=== PATIENT | female | born 1955 | race Caucasian/White ===

== ENCOUNTER 2021-03-27 09:26 | Outpatient (CLI) | payer BC ==
[~2021-03-27] VITALS: Ht 160.2 cm; Wt 59.9 kg
== END 2021-03-27 12:42 | disposition home or self-care (01) ==
LOC: PREOP 09:26
PROVIDERS: ATTEND Internal Medicine
DX: Z01.818 Encounter for other preprocedural examination (principal)

== ENCOUNTER 2021-04-04 08:02 | Day surgery (SDC) | payer BC ==
--- NOTE | 2021-03-28 07:03 | HISTORY AND PHYSICAL ---
DATE OF SERVICE: COLONOSCOPY HISTORY AND PHYSICAL DATE OF ADMISSION: 04/04/2021. HISTORY OF PRESENT ILLNESS: The patient is a 66-year-old white female referred by Dr. Aguirre for her first screening colonoscopy. She is deemed to be of higher than average risk as her mother was diagnosed with colon cancer at the age of 62 and lived to the age of 89. She does report some intermittent episodes of left lower quadrant abdominal discomfort for the past several years, last 2 or 3 days, sometimes radiates around to her back, not associated with bowel habit change and she has noted no bright red blood per rectum or melena. She does note some increase in gas and wonders about underlying diverticulitis. She believes she had one grandmother, who had issues with diverticulitis. Neither of her parents to her knowledge did; however. She states that she may have put on a pound or two since the onset of the COVID, denying weight loss. She takes no medication. Reports no significant past medical history. PAST SURGICAL HISTORY: Unremarkable as well. Reporting no past surgeries. FAMILY HISTORY: Mother's history is as noted in the HPI. Father of natural causes at the age of 96. 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 She has no past smoking history and reports 3 to 4 night drinks either beer or wine per week. REVIEW OF SYSTEMS: CONSTITUTIONAL: She denies night sweats, chills or fever. She is fully vaccinated for COVID. PULMONARY: She denies cough, wheezing or shortness of breath. CARDIOVASCULAR: She denies chest pain, syncope, presyncope, orthopnea, PND or pedal edema. GASTROINTESTINAL: As noted in the HPI. PHYSICAL EXAMINATION: GENERAL: Reveals a pleasant, well-appearing white female, in no acute distress. VITAL SIGNS: Initial blood pressure 168/94 at the end of the interview 140/80. She reports her blood pressure is usually much lower than this and she is anxious about being here. Weight is 133.4 pounds. HEENT: Unremarkable. CHEST: Clear to auscultation. CARDIOVASCULAR: Reveals a regular rate and rhythm without murmur, S3 or S4. ABDOMEN: Soft, supple without mass, organomegaly or tenderness with particular attention to the left lower quadrant of the abdomen, which was unremarkable. Bowel sounds positive. EXTREMITIES: Reveal no cyanosis, clubbing or edema. ASSESSMENT AND PLAN: The patient is set up for her first screening colonoscopy on 04/04/2021. Prep instructions with the Suprep kit were given and questions were answered. I thank you for the referral of this pleasant lady. Job ID: [id number] DocumentID: [id number] Dictated Date: 03/26/2021 09:58:02 Recording Studio Internship Date: 03/26/2021 11:28:50 Dictated By: CELINE YUN MD
[2021-04-04] VITALS (9 sets, daily range): BP systolic 109–160; BP diastolic 59–85
[~2021-04-04] VITALS: Ht 160.2 cm; Wt 59.9 kg
[2021-04-04] MEDS ORDERED: LIDOCAINE JELLY 2% 6 ML SYRINGE ONE ×2 (08:11→08:35)
[2021-04-04] MEDS ORDERED: LACTATED RINGERS 1,000 ML IV ONE (08:11)
[2021-04-04] MEDS ORDERED: MIDAZOLAM 2 MG/2 ML (VERSED) VIAL ONE (08:33)
[2021-04-04] MEDS ORDERED: PROPOFOL INJECTION 50 ML IV ONE (08:33)
--- NOTE | 2021-04-04 08:39 | Pre-Op Note & Conscious Sedat ---
Pre-Operative Progress Note H&P Reviewed The H&P was reviewed, patient examined and no changes noted. Date H&P Reviewed: April 04, 2021 Time H&P Reviewed: 08:05 Conscious Sedation Pre-Proced ASA Score 1 For ASA 3 and 4: Consider anesthesia and medical clearance. Also, for patients with a history of failed moderate sedation consider anesthesia. Airway Lungs Heart ASA score ASA 1: a normal healthy patient ASA 2: a patient with a mild systemic disease (mid diabetes, controlled hypertension, obesity ASA 3: a patient with a severe systemic disease that limits activity (angina, COPD, prior Myocardial infarction) ASA 4: a patient with an incapacitating disease that is a constant threat to life (CHF, renal failure) ASA 5: a moribund patient not expected to survive 24 hrs. (ruptured aneurysm) ASA 6: a declared brain- patient whose organs are being harvested. For emergent operations, add the letter E after the classification Mallampati Classification Grade 1 Sedation Plan Analgesia, Amnesia, Plan communicated to team members, Discussed options with patient/fam, Discussed risks with patient/fam The patient is an appropriate candidate to undergo the planned procedure, sedation, and anesthesia. The patient immediately re-assessed prior to indication. CELINE YUN MD April 04, 2021 08:39
[2021-04-04] MEDS ORDERED: LACTATED RINGERS 1,000 ML IV SCH (09:15)
--- NOTE | 2021-04-04 13:27 | Anesthesia-General Post-Op ---
MAC Patient Condition Mental Status/LOC: Same as Preop Cardiovascular: Satisfactory Nausea/Vomiting: Absent Respiratory: Satisfactory Pain: Controlled Complications: Absent Post Op Complications Complications None Follow Up Care/Instructions Patient Instructions None needed. Anesthesiology Discharge Order Discharge Order Patient is doing well, no complaints, stable vital signs, no apparent adverse anesthesia problems. No complications reported per nursing. YUNIOR RAMOS CRNA April 04, 2021 13:27
--- NOTE | 2021-04-04 17:48 | OPERATIVE REPORT ---
DATE OF SERVICE: COLONOSCOPY SUMMARY INDICATION FOR THE PROCEDURE: Screening, family history for colon cancer. DESCRIPTION OF PROCEDURE: The patient was placed in the left lateral decubitus position. Prior to undergoing colonoscopy, digital rectal evaluation was performed. Anal sphincter tone was normal. Perianal reflexes intact. No abnormalities were noted on digital inspection of anal canal or distal rectal vault. The colonoscope was then inserted into the rectum and under direct visualization advanced to cecum. The cecum was identified by identification of ileocecal valve and cecal strap. Photographic documentation was obtained. Careful inspection was made as colonoscope was withdrawn. Quality of the prep was good. FINDINGS: There was no evidence for internal or external hemorrhoids. Present in the distal rectum was a sessile adenomatous polyp measuring roughly 1.5 x 1 cm in size. No ulceration or inflammatory change was noted. It was biopsied in three locations and cauterized in three locations with no subsequent blood loss. The remainder of the rectum was unremarkable. Moderate number of small medium size sigmoid diverticulum were present without evidence for diverticulitis. A small adenomatous appearing polyp was noted in the proximal sigmoid colon. It was photographed and biopsied and ablated with no blood loss. The descending colon, splenic flexure, transverse colon, hepatic flexure, ascending colon and cecum were unremarkable. ASSESSMENT: Two adenomatous appearing polyps were removed today, the larger from the distal rectum. We will likely be advocating a 1-year surveillance colonoscopy interval as long as there is no evidence for microscopic malignancy or dysplasia in regards to the rectal polyp. The patient had moderate diverticular disease without evidence for diverticulitis confined to the sigmoid colon. I thank you for the referral of this pleasant lady. Job ID: [id number] DocumentID: [id number] Dictated Date: 04/04/2021 11:25:20 Denture Packer Date: 04/04/2021 17:46:17 Dictated By: CELINE YUN MD MTDD
== END 2021-04-04 10:05 | disposition home or self-care (01) ==
LOC: ENDO 08:02
PROVIDERS: ATTEND Internal Medicine
DX: Z12.11 Encounter for screening for malignant neoplasm of colon (principal); D12.8 Benign neoplasm of rectum; D12.5 Benign neoplasm of sigmoid colon; K57.30 Diverticulosis of large intestine without perforation or abscess without bleeding; Z80.0 Family history of malignant neoplasm of digestive organs
CPT/HCPCS: 88305

== ENCOUNTER → 2021-04-15 | Outpatient (CLI) | payer BC | LOC: RAD 08:15 | PROVIDERS: ATTEND Family Medicine | DX: Z12.31 Encounter for screening mammogram for malignant neoplasm of breast (principal) | CPT/HCPCS: 77063; 77067 ==

== ENCOUNTER 2022-04-10 08:06 | Outpatient (CLI) | payer BC, MEDICARE ==
[~2022-04-10] VITALS: Ht 160 cm; Wt 58.5 kg
== END 2022-04-15 10:45 | disposition home or self-care (01) ==
LOC: PREOP 08:06
PROVIDERS: ATTEND Internal Medicine
DX: Z01.818 Encounter for other preprocedural examination (principal); D12.8 Benign neoplasm of rectum

== ENCOUNTER 2022-04-24 08:52 | Day surgery (SDC) | payer BC, MEDICARE ==
--- NOTE | 2022-04-12 07:01 | HISTORY AND PHYSICAL ---
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 She is going to be undergoing surveillance colonoscopy. She is deemed to be of higher than average risk secondary to this polyp as well as the fact that her mother was diagnosed with colon cancer at the age of 62. Last year, was her first colonoscopy. She reports that she has done well and had no problems with the procedure. There have been no changes in health history. She denies bright red blood per rectum, melena, change in bowel habits or abdominal pain. PAST SURGICAL HISTORY: She reports no past surgeries. PAST MEDICAL HISTORY: Remarkably noncontributory, is unremarkable. MEDICATIONS: Taking no prescription medications. ALLERGIES: Reporting no known drug allergies. FAMILY HISTORY: Other than her mother's colon cancer diagnosis, she did live to be 89 years of age. Father reported natural causes at the age of 96. 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 PHYSICAL EXAMINATION: GENERAL: Reveals a pleasant white female, appears to be in no acute distress. She is a little bit anxious. VITAL SIGNS: Blood pressure was mildly elevated at 158/82 with a weight of 129, stable. HEENT: Unremarkable. Sclerae nonicteric. CHEST: Clear to auscultation. CARDIOVASCULAR: Reveals regular rate and rhythm without murmur, S3 or S4. ABDOMEN: Soft, supple without mass, organomegaly or tenderness. No bruits are noted. Bowel sounds are positive. EXTREMITIES: Reveal no cyanosis, clubbing or edema. ASSESSMENT: The patient is being set up for surveillance colonoscopy due to past history of tubulovillous adenoma removed from the rectum. Prep instructions were given, and questions were answered. Thank you for the referral of this pleasant lady. Job ID: [id number] DocumentID: [id number] Dictated Date: 04/09/2022 10:03:14 City Alderman Date: 04/09/2022 10:47:00 Dictated By: CELINE YUN MD
[~2022-04-24] VITALS: Ht 160 cm; Wt 58.5 kg
[2022-04-24] MEDS ORDERED: LACTATED RINGERS 1,000 ML IV STA (08:56)
[2022-04-24 09:05] VITALS: BP 165/93
[2022-04-24] MEDS ORDERED: PROPOFOL INJECTION 50 ML IV ONE (10:42)
[2022-04-24 11:10] VITALS: BP 124/59
--- NOTE | 2022-04-24 11:10 | Pre-Op Note & Conscious Sedat ---
Pre-Operative Progress Note H&P Reviewed The H&P was reviewed, patient examined and no changes noted. Date H&P Reviewed: Apr 24, 2022 Time H&P Reviewed: 10:10 Conscious Sedation Pre-Proced ASA Score 1 For ASA 3 and 4: Consider anesthesia and medical clearance. Also, for patients with a history of failed moderate sedation consider anesthesia. Airway Lungs Heart ASA score ASA 1: a normal healthy patient ASA 2: a patient with a mild systemic disease (mid diabetes, controlled hypertension, obesity ASA 3: a patient with a severe systemic disease that limits activity (angina, COPD, prior Myocardial infarction) ASA 4: a patient with an incapacitating disease that is a constant threat to life (CHF, renal failure) ASA 5: a moribund patient not expected to survive 24 hrs. (ruptured aneurysm) ASA 6: a declared brain- patient whose organs are being harvested. For emergent operations, add the letter E after the classification Mallampati Classification Grade 1 Sedation Plan Analgesia, Amnesia, Plan communicated to team members, Discussed options with patient/fam, Discussed risks with patient/fam The patient is an appropriate candidate to undergo the planned procedure, sedation, and anesthesia. The patient immediately re-assessed prior to indication. CELINE YUN MD Apr 24, 2022 11:10
[2022-04-24 11:14] VITALS: BP 128/60
[2022-04-24 11:43] VITALS: BP 128/60
--- NOTE | 2022-04-24 12:22 | Anesthesia-General Post-Op ---
MAC Patient Condition Mental Status/LOC: Same as Preop Cardiovascular: Satisfactory Nausea/Vomiting: Absent Respiratory: Satisfactory Pain: Controlled Complications: Absent Post Op Complications Complications None Follow Up Care/Instructions Patient Instructions None needed. Anesthesiology Discharge Order Discharge Order Patient is doing well, no complaints, stable vital signs, no apparent adverse anesthesia problems. No complications reported per nursing. VIRIDIANA MEEKS CRNA Apr 24, 2022 12:22
--- NOTE | 2022-04-24 18:46 | OPERATIVE REPORT ---
DATE OF SERVICE: COLONOSCOPY SUMMARY INDICATION FOR THE PROCEDURE: Surveillance colonoscopy, followup of rectal adenoma. The patient was placed in the left lateral decubitus position. Prior to undergoing colonoscopy, a digital rectal evaluation was performed. Anal sphincter tone was normal. Perianal reflexes intact. No abnormalities were noted on digital inspection of anal canal or distal rectal vault. The colonoscope was then inserted into the rectum and under direct visualization advanced to the cecum. The cecum was identified by identification of ileocecal valve and cecal strap. Photographic documentation was obtained. Careful inspection was made as the colonoscope withdrawn. Quality of prep was good. FINDINGS: Small distal rectal 5 mm sessile adenomatous appearing polyp without ulceration was noted. It was biopsied and ablated and submitted for histopathology. The remainder of the rectum was unremarkable. Mild diverticular disease confined to the sigmoid colon was present with no other sigmoid colonic abnormalities being appreciated. The descending colon, splenic flexure, transverse colon, hepatic flexure, ascending colon, and cecum were unremarkable. ASSESSMENT: One 5 mm sessile distal rectal polyp was removed via hot forceps with no subsequent blood loss. Mild diverticular disease confined to the sigmoid colon was present with no other abnormalities being appreciated. As long as there are no surprises on histopathology, would advocate consideration for repeat surveillance colonoscopy in three years. I thank you for the referral of this pleasant lady. Job ID: [id number] DocumentID: [id number] Dictated Date: 04/24/2022 11:09:02 Catering Manager Date: 04/24/2022 18:46:05 Dictated By: CELINE YUN MD
== END 2022-04-24 11:45 | disposition home or self-care (01) ==
LOC: ENDO 08:52
PROVIDERS: ATTEND Internal Medicine
DX: Z12.11 Encounter for screening for malignant neoplasm of colon (principal); D12.8 Benign neoplasm of rectum; K57.30 Diverticulosis of large intestine without perforation or abscess without bleeding; Z80.0 Family history of malignant neoplasm of digestive organs

== ENCOUNTER → 2023-04-07 | Outpatient (CLI) | payer MEDICARE ==
--- NOTE | 2023-04-07 11:20 | Diagnostic Imaging Report ---
INDICATION: Screening. EXAMINATION: Bilateral 3D screening mammograms. COMPARISON: 04/15/2021. FINDINGS: There is dense breast parenchyma bilaterally. Benign calcifications are seen in both breasts. There is no evidence of new dominant mass or suspicious calcification. IMPRESSION: Category 2, benign findings. High breast parenchymal density limits mammographic sensitivity. Continued physical examination and annual mammographic followup are recommended. ACR BI-RADS Category 2: Benign findings. Result letter will be mailed to the patient. Note: At least 10% of breast cancer is not imaged by mammography. Dictated by: Dictated on workstation # [id number]
== END ==
LOC: RAD 09:39
PROVIDERS: ATTEND Family Medicine
DX: Z12.31 Encounter for screening mammogram for malignant neoplasm of breast (principal)
CPT/HCPCS: 77063; 77067